=== PATIENT | female | born 1995 | race Caucasian/White ===

== ENCOUNTER 2018-07-23 06:20 | Observation (INO) | payer OTHER ==
[2018-07-22 15:49] VITALS: BMI 36.2
[~2018-07-23] VITALS: Ht 154.9 cm; Wt 87.3 kg
[2018-07-23] VITALS (28 sets, daily range): BP systolic 82–120; BP diastolic 43–71; PULSE 75–100; RESP 15–26; Ht 154.9 cm; Wt 87.3 kg
[2018-07-23] MEDS ORDERED: CEFAZOLIN 2 GM/50 ML (PMX) 50 ML (FOR WT < 120 KG) IVPB ONE (07:00)
[2018-07-23] MEDS: SOD CHLORIDE 0.9% 1,000 ML IV SCH (07:00)
[2018-07-23] MEDS: LACTATED RINGER'S 1,000 ML IV SCH ×2 (07:48→20:05)
--- NOTE | 2018-07-23 09:01 | PREAC ---
Date/Time of Note Date/Time of Note DATE: 07/23/18 TIME: 09:00 Anesthesia Eval and Record Evaluation Time Pre-Procedure Interview DATE: 07/23/18 TIME: 09:00 Age 22 Sex female NPO: 8 hrs Preoperative diagnosis Ovarian Cyst Planned procedure Lap. Ovarian Cystectomy Past Medical History Past Medical History: Includes GI: Obesity Heme: Anemia Surgery & Anesthesia Issues No known issue Meds Anticoagulation: No Beta Latesha within 24 hr: No Reason Beta Latesha not given: Pt. not on B-Latesha No Active Prescriptions or Reported Meds Current Medications Lactated Ringer's 1,000 ml @ 25 mls/hr Q24H IV Last administered on 07/23/18at 07:48; Admin Dose 25 MLS/HR; Start 07/23/18 at 07:00 Sodium Chloride 1,000 ml @ 25 mls/hr Q24H IV ; Start 07/23/18 at 07:00 Meds reviewed: Yes Allergies Coded Allergies: No Known Allergy (Unverified , 07/23/18) Allergies Reviewed: Yes Labs/Studies Labs Reviewed: Reviewed by anesthesiologist Result Diagram: 07/23/18 0729 07/23/18 0729 Laboratory Tests 07/23/18 07:29 test: Negative Pre-procedure Exam Last vitals Vital Signs Date Temp Pulse Resp B/P (MAP) Pulse Ox O2 O2 Flow FiO2 Time Delivery Rate 07/23/18 97.0 84 16 111/71 100 Room Air 07:44 (84) Airway: Adequate mouth opening Mallampati: Mallampati II Teeth: Normal Lung: Normal Heart: Normal ASA Physical Status ASA physical status: 2 Emergency: None Planned Anesthetic General/MAC: ETT Pre-operative Attestations Prior to commencing anesthesia and surgery, the patient was re-evaluated, there was verification of: *The patient's identity *The results of appropriate recent lab work and preoperative vital signs *The above evaluation not changing prior to induction *Anesthetic plan, risk benefits, alternative and complications discussed with patient/family; questions answered; patient/family understands, accepts and wishes to proceed. KYLE HERBERT MD July 23, 2018 09:01
[2018-07-23] MEDS ORDERED: ROCURONIUM 50 MG INJ ONE (09:06)
[2018-07-23] MEDS ORDERED: MIDAZOLAM 1 MG/ML 2 ML INJ ONE (09:06)
[2018-07-23] MEDS ORDERED: KETOROLAC 30 MG INJ ONE (09:06)
[2018-07-23] MEDS ORDERED: ONDANSETRON 4 MG INJ ONE ×2 (09:06→12:14)
[2018-07-23] MEDS ORDERED: LIDOCAINE 1%/EPI (1:100,000) (MDV) 20 ML ONE (09:06)
[2018-07-23] MEDS ORDERED: PROPOFOL 20 ML ONE (09:06)
[2018-07-23] MEDS ORDERED: CEFAZOLIN 1 GM INJ ONE (09:06)
[2018-07-23] MEDS ORDERED: HYDROmorphONE 1 MG/5 ML IV SYRINGE IV PRN (10:30)
[2018-07-23] MEDS ORDERED: OXYCODONE/ACETAMINOPHEN (5/325) TAB PO PRN ×2 (10:30→19:00)
[2018-07-23] MEDS ORDERED: PHENYLephrine (100 MCG/ML) 10ML SYG ONE (10:53)
[2018-07-23] MEDS ORDERED: NEOSTIGMINE 3 MG/3 ML SYRINGE ONE (11:26)
[2018-07-23] MEDS ORDERED: GLYCOPYRROLATE 0.4 MG INJ ONE (11:26)
--- NOTE | 2018-07-23 11:46 | OPPN ---
Date/Time of Note Date/Time of Note DATE: 07/23/18 TIME: 11:45 Operative Report Preoperative Diagnosis Large left ovarian cyst(Dermoid cyst) Postoperative Diagnosis same Operation/Procedure Performed Operative laparoscopy ,Left ovarian cystectomy Surgeon see signature line assistant scientist Tech Anesthesia: general Estimated blood loss: 150 - 200 ml's Transfusion Required none Specimen Left ovarian dermoid cyst Grafts/Implants none Complications none GABBI STOCK M.D. July 23, 2018 11:46
--- NOTE | 2018-07-23 11:49 | PAC ---
Date/Time of Note Date/Time of Note DATE: 07/23/18 TIME: 11:49 Post-Anesthesia Notes Post-Anesthesia Note Last documented vital signs Vital Signs Date Temp Pulse Resp B/P (MAP) Pulse Ox O2 O2 Flow FiO2 Time Delivery Rate 07/23/18 97.0 84 16 111/71 100 Room Air 07:44 (84) Activity: WNL Respiratory function: WNL Cardiovascular function: WNL Mental status: Baseline Pain reasonably controlled: Yes Hydration appropriate: Yes Nausea/Vomiting absent: Yes KYLE HERBERT MD July 23, 2018 11:49
[2018-07-23] MEDS ORDERED: IBUPROFEN 600 MG TAB PO PRN ×2 (13:00)
[2018-07-23] MEDS ORDERED: LACTATED RINGER'S 1,000 ML IV ONE (13:00)
[2018-07-23] MEDS: ONDANSETRON 4 MG INJ IV PRN (13:23)
[2018-07-23] MEDS: OXYCODONE/ACETAMINOPHEN (5/325) TAB PO PRN (18:30)
[2018-07-24 02:00] VITALS: BP 101/57; PULSE 90; RESP 18
[2018-07-24] MEDS: ONDANSETRON 4 MG INJ IV PRN ×4 (06:21→20:14)
[2018-07-24] MEDS: SOD CHLORIDE 0.9% 1,000 ML IV SCH (07:00)
[2018-07-24 08:00] VITALS: BP 105/54; PULSE 103; RESP 18
[2018-07-24] MEDS: OXYCODONE/ACETAMINOPHEN (5/325) TAB PO PRN (08:46)
--- NOTE | 2018-07-24 11:53 | QN ---
Documentation Comment patient is seen at the bedside.She is receiving the first unit oF PRBC comfortable,Minimum incisional pain VS stable Gen NAD 100/50 TN 94 Abd soft ND Incisions intact Genitalia No blood at perineum -->CBC after 4 units of PRBC --->If there is not drop in Hb she can be discharged with precautions --->Questions answered GABBI STOCK M.D. July 24, 2018 11:53
--- NOTE | 2018-07-24 12:35 | QN ---
Documentation Comment Patient is completely stable now ,VS stable Abdome is soft patient is kept NPO to have a possible exploratory laparosocpy or laparatomy in case that she get unstable od Hb drops GABBI Jason M.D. July 24, 2018 12:35
--- NOTE | 2018-07-24 13:11 | OPR ---
DATE OF OPERATION: 07/23/2018 PREOPERATIVE DIAGNOSIS: Large left ovarian cyst, possibly dermoid. POSTOPERATIVE DIAGNOSIS: Large left ovarian cyst, possibly dermoid. PROCEDURE: Operative laparoscopy, left ovarian cystectomy. ATTENDING SURGEON: Trace Aguilera MD TYPE OF ANESTHESIA: General. COMPLICATIONS: None. ESTIMATED BLOOD LOSS: 200 mL. TECHNIQUE: The patient was taken to the operating room where general anesthesia was found to be adeq uate. The patient was placed in dorsal lithotomy position after prep and drape. A 1 cm incision was made above the umbilicus. First trocar was inserted under direct visualization of the camera. Intr aabdominal cavity was filled up using 4 liters of CO2 then second and third trocar were inserted 8 to 10 cm from the first one on both sides of the patient under direct visualization of the camera. Lar ge left ovarian cyst was noticed. It was then inflated and around 7 x 8 cm dermoid cyst was removed intact. It was placed inside the Endobag and removed. The left incision was extended slightly and t he tissue was removed from the incision. Then, intraabdominal cavity was filled up again with gas an d copious irrigation of abdominal and pelvic cavity was done. There was good amount of blood around 200 mL in the cul-de-sac, pelvic cavity. Some of them were the fluid that was used for the irrigatio n. It was suctioned out. All was placed the ovary. Hemostasis was achieved. Pictures were t mimi. The gas was removed. Trocar was removed under direct visualization of the camera. Fascia was closed on the left and right incision using a UR-6 Vicryl suture and then the skin was closed using 3-0 Monocryl sutures on all 3 incisions. Dermabond was placed on top of the incision. The patient t olerated the procedure well and was transferred to recovery room in stable condition. There was no c omplication regarding this surgery. Dictated By: TRACE FONSECA/ANISA Conf#: [id number] DID#: [id number]
--- NOTE | 2018-07-24 13:19 | PREOPHP ---
DATE OF ADMISSION: 07/23/2018 HISTORY OF PRESENT ILLNESS: A 22-year-old 0, para 0 admitted as scheduled case for operative laparoscopy, removal of the left ovarian cyst. PAST MEDICAL HISTORY: Denies. PAST SURGICAL HISTORY: Denies. ALLERGIES: NKDA. PHYSICAL EXAMINATION: VITAL SIGNS: Stable. GENERAL: Normal. ABDOMEN: Not tender, not distended. Mildly obese. GENITAL: Exam deferred. She states that she is virgin. ASSESSMENT AND PLAN: After discussing the alternatives and risk and benefits of the surgery and risk s and benefits of alternatives, the patient consented for operative laparoscopy, left ovarian cystect alonso, possible laparotomy. Dictated By: GABBI FONSECA/ANISA Conf#: [id number] DID#: [id number]
[2018-07-24 14:00] VITALS: BP 118/61; PULSE 61; RESP 20
[2018-07-24 20:21] VITALS: BP 107/58; PULSE 96; RESP 18
[2018-07-24] MEDS ORDERED: ONDANSETRON 4 MG INJ IV PRN (23:52)
[2018-07-25 02:18] VITALS: BP 118/67; PULSE 94; RESP 18
[2018-07-25 08:00] VITALS: BP 98/55; PULSE 80; RESP 20
--- NOTE | 2018-07-25 09:20 | QN ---
Documentation Comment patient feels improved no nausea or vomiting this morning +flatus +Voids VS stable Gen NAD Abd soft NT ND Incisions are healing well Genitalia Deferred --->Advance diet ---->If she tolerates diet she can be discharged GABBI STOCK M.D. July 25, 2018 09:20
--- NOTE | 2018-07-25 09:21 | DS ---
Date/Time of Note Date/Time of Note DATE: 07/25/18 TIME: 09:20 Discharge Summary Admission/Discharge Info Admit Date/Time July 23, 2018 at 12:39 Discharge Date/Time 07/25/2018 Discharge Diagnosis Left large ovarian cyst Patient Condition: Good Hospital Course uneventful Home Meds No Active Prescriptions or Reported Meds Primary Care Provider Not On Staff Doctor Pending Labs Laboratory Tests Test 07/24/18 20:57 White Blood Count 9.0 10^3/ul (4.8-10.8) Red Blood Count 3.81 10^6/ul (4.20-5.40) Hemoglobin 10.0 g/dl (12.0-16.0) Hematocrit 31.4 % (37.0-47.0) Mean Corpuscular Volume 82.4 fl (72.0-104.0) Mean Corpuscular Hemoglobin 26.2 pg (29.0-33.0) Mean Corpuscular Hemoglobin Concent 31.8 g/dl (32.0-37.0) Red Cell Distribution Width 14.5 % (11.5-14.5) Platelet Count 316 10^3/UL (140-415) Mean Platelet Volume 9.3 fl (7.4-10.4) Immature Granulocytes % 0.300 % (0.001-0.429) Neutrophils % 66.2 % (30.0-74.0) Lymphocytes % 23.8 % (18.0-55.0) Monocytes % 8.7 % (0.0-13.0) Eosinophils % 0.7 % (0.0-7.0) Basophils % 0.3 % (0.0-2.0) Nucleated Red Blood Cells % 0.0 /100WBC (0.0-0.0) Immature Granulocytes # 0.030 10^3/ul (0.0-0.031) Neutrophils # 6.0 10^3/ul (1.6-7.5) Lymphocytes # 2.2 10^3/ul (0.8-2.9) Monocytes # 0.8 10^3/ul (0.3-0.9) Eosinophils # 0.1 10^3/ul (0.0-0.5) Basophils # 0.0 10^3/ul (0.0-0.1) Nucleated Red Blood Cells # 0.0 10^3/ul (0.0-0.0) GABBI STOCK M.D. July 25, 2018 09:21
[2018-07-25 14:23] VITALS: BP 103/57; PULSE 89; RESP 18
== END 2018-07-25 14:45 | disposition home or self-care (01) ==
LOC: SDS 06:20 → REC 12:39 → PP2 16:50
PROVIDERS: ADMIT Obstetrics & Gynecology; ATTEND Obstetrics & Gynecology
DX: D27.1 Benign neoplasm of left ovary (principal)
CPT/HCPCS: 36430; 58662; 80053; 84703; 85025; 85610; 85730; 86850; 86900; 86901; 86920; 88307; J0690; J1885; J2250; J2370; J2405; J2710; J3010; J7030; J7120; P9016; Z7500; Z7512; Z7610; G0378